=== PATIENT | male | born 1980 | race African-American/Black ===

== ENCOUNTER 2021-01-08 14:00 | Emergency (ER) | payer OTHER ==
[~2021-01-08] VITALS: Ht 193 cm; Wt 170.1 kg
--- NOTE | 2021-01-08 14:18 | NUR ---
LUCINA FROM [facility] C/O CHEST PAIN X 1 WEEK. ASPIRIN AND NITRO GIVEN, NO RELIEF PER PT. PT AAOX4, VSS. RR EVEN & UNLABORED. DENIES SOB, DIZZINESS, N/V, ARM/JAW PAIN AT THIS TIME. PT SEEN & EVAL'D BY DR. BUNDY. 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
[2021-01-08 14:29] LABS: BASOPHILS # (AUTO) 0.4 /CMM (0.0-0.2); BASOPHILS % (AUTO) 3.1 % (0.0-2.0); EOSINOPHILS % (AUTO) 5.1 % (0.0-6.0); HEMATOCRIT 45 % (39-51); HEMOGLOBIN 14.4 g/dL (13.5-17.5); LYMPHOCYTES # (AUTO) 2.2 /CMM (0.8-4.8); LYMPHOCYTES % (AUTO) 16.1 % (20.0-44.0); MEAN CORPUSCULAR HGB CONC 32 g/dl (31.0-36.0); MEAN CORPUSCULAR VOLUME 88 fL (80-96); MONOCYTES % (AUTO) 7.4 % (2.0-12.0); NEUTROPHILS # (AUTO) 9.3 /CMM (1.8-8.9); NEUTROPHILS % (AUTO) 68.3 % (43.0-81.0); PLATELET COUNT (AUTO) 365 /CMM (150-450); RED BLOOD CELL COUNT(AUTO) 5.14 MIL/uL (4.5-6.0); WHITE BLOOD COUNT (AUTO) 13.6 K/uL (4.3-11.0)
[2021-01-08] MEDS ORDERED: GABA600T12 PO (14:33)
[2021-01-08] MEDS ORDERED: MAG-55 PO (14:33)
[2021-01-08] MEDS ORDERED: LORA-259 PO (14:33)
[2021-01-08] MEDS ORDERED: TRAZ-257 PO (14:33)
[2021-01-08] MEDS ORDERED: BUPR-319 PO (14:33)
[2021-01-08] MEDS ORDERED: HYDR-3972 PO (14:33)
[2021-01-08] MEDS ORDERED: OLAN10TA3 PO (14:33)
[2021-01-08 14:36] LABS: CALCIUM, SERUM 8.7 mg/dL (8.5-10.1); CARBON DIOXIDE 29 mmol/L (21-32); CHLORIDE 102 mmol/L (98-107); CREATININE 1.3 mg/dL (0.6-1.3); GLUCOSE 130 mg/dL (74-106); POTASSIUM 3.9 mmol/L (3.5-5.1); SODIUM SERUM 138 mmol/L (136-145); UREA NITROGEN, BLOOD 15 mg/dL (7-18)
[2021-01-08 14:42] LABS: ALANINE AMINOTRANSFERASE 36 U/L (12-78); ALBUMIN 3.2 g/dL (3.4-5.0); ALKALINE PHOSPHATASE 59 U/L (46-116); ASPARTATE AMINOTRANSFERASE 22 U/L (15-37); BILIRUBIN,DIRECT 0.1 mg/dL (0.0-0.2); BILIRUBIN,TOTAL 0.3 mg/dL (0.2-1.0); TOTAL PROTEIN, SERUM 7.4 g/dL (6.4-8.2)
[2021-01-08] MEDS: IBUPROFEN 600 MG TABLET PO ONE (14:56)
[2021-01-08] MEDS ORDERED: IBUP-1955 PO (14:56)
[2021-01-08] MEDS ORDERED: IBUPROFEN 600 MG TABLET ONE (14:57)
--- NOTE | 2021-01-08 15:09 | NUR ---
CALLED [facility] FOR TRANPORT TO [facility]. ETA 30-45 MINUTES.
[2021-01-08 15:32] VITALS: BP 132/82
--- NOTE | 2021-01-08 15:32 | NUR ---
Patient discharged to home in stable condition. Written and verbal after care instructions given. Patient verbalizes understanding of instruction. IV removed. Catheter intact and site benign. Pressure and 4x4 applied to site. No bleeding noted.
[2021-01-08 16:34] LABS: EOSINOPHILS % (MANUAL) 6 % (0-4); LYMPHOCYTES % (MANUAL) 25 % (16-48); MONOCYTES % (MANUAL) 9 % (0-11.0); NEUTROPHILS % (MANUAL) 58 (42-76); REACTIVE LYMPHOCYTES 2 % (0-0)
== END 2021-01-08 15:33 ==
LOC: ER 14:05
DX: R07.89 Other chest pain (principal); D72.828 Other elevated white blood cell count; F31.9 Bipolar disorder, unspecified; F17.200 Nicotine dependence, unspecified, uncomplicated; Z79.899 Other long term (current) drug therapy; Z88.0 Allergy status to penicillin
CPT/HCPCS: 36415; 71045-TC; 73030-TC; 80048-TC; 80076-TC; 84484-TC; 85025-TC